=== PATIENT | female | born 1940 | race Caucasian/White ===

== ENCOUNTER 2016-10-30 08:52 | Day surgery (SDC) | payer MEDICARE, OTHER ==
[2016-10-30] MEDS ORDERED: PHENYLEPHRINE 2.5% OPHTH 2 ML DROPS ONE (08:59)
[2016-10-30] MEDS ORDERED: PHENYLEPHRINE 2.5% OPHTH 2 ML DROPS OPTH ONE (09:15)
[2016-10-30] MEDS ORDERED: CYCLOPENTOLATE 1% OPHTH DROPS 2 ML OPTH ONE (09:15)
[2016-10-30] MEDS ORDERED: KETOROLAC 0.45% OPHTH DROPS OPTH ONE (09:15)
[2016-10-30] MEDS ORDERED: PROPARACAINE 0.5% OPHTH DROPS 15 ML OPTH ONE (09:15)
[2016-10-30] MEDS ORDERED: LACTATED RINGERS 500 ML IV ONE (09:22)
[2016-10-30] MEDS ORDERED: BRIMONIDINE 0.2% OPHTH DROPS 5 ML OPTH ONE (09:38)
[2016-10-30] MEDS ORDERED: EPINEPHrine 1 MG/ML AMP IVP ONE (09:38)
[2016-10-30] MEDS ORDERED: levoFLOXacin 0.5% OPHTH DROPS 5 ML OPTH ONE (09:38)
[2016-10-30] MEDS ORDERED: BSS/LIDOCAINE/EPINEPHRINE 1 ML SYRINGE IO ONE (09:38)
[2016-10-30] MEDS ORDERED: CHONDR SULF/HYALURONATE SYRINGE IO ONE (09:38)
[2016-10-30] MEDS ORDERED: TRIAMCIN/MOXIFLOX/VANCO 1 ML VIAL IO ONE (09:38)
[2016-10-30] MEDS ORDERED: MIDAZOLAM 2 MG/2 ML VIAL IVP ONE (09:45)
[2016-10-30] MEDS ORDERED: LACTATED RINGERS 1,000 ML IV ONE (09:59)
== END 2016-10-30 08:53 | disposition home or self-care (01) ==
PROC: 08RJ3JZ Replacement of Right Lens with Synthetic Substitute, Percutaneous Approach (ICD-10-PCS; principal; 2016-10-30 10:10)
DX: H25.811 Combined forms of age-related cataract, right eye (principal); I10 Essential (primary) hypertension; E78.5 Hyperlipidemia, unspecified; J45.909 Unspecified asthma, uncomplicated; Z79.82 Long term (current) use of aspirin; Z90.49 Acquired absence of other specified parts of digestive tract; Z90.710 Acquired absence of both cervix and uterus
CPT/HCPCS: 66984; A9270; J7120; V2632

== ENCOUNTER 2016-12-08 08:00 | Outpatient (CLI) | payer MEDICARE, OTHER | END 2016-12-08 08:01 | DX: I10 Essential (primary) hypertension (principal); E11.9 Type 2 diabetes mellitus without complications; E78.5 Hyperlipidemia, unspecified ==

== ENCOUNTER 2016-12-23 15:37 | Outpatient (CLI) | payer MEDICARE, OTHER | END 2016-12-23 15:38 | disposition home or self-care (01) | DX: I10 Essential (primary) hypertension (principal) ==

== ENCOUNTER 2016-12-29 16:30 | Outpatient (CLI) | payer MEDICARE, OTHER | END 2016-12-29 16:31 | disposition home or self-care (01) | DX: R31.9 Hematuria, unspecified (principal) ==

== ENCOUNTER 2016-12-29 17:52 | Outpatient (CLI) | payer MEDICARE, OTHER ==
[2016-12-29] MEDS ORDERED: IOPAMIDOL-300 50 ML VIAL PO ONE (20:00)
[2016-12-29] MEDS ORDERED: IOPAMIDOL-300 100 ML VIAL IVP ONE (20:00)
== END 2016-12-29 17:53 | disposition home or self-care (01) ==
DX: R18.8 Other ascites (principal); K57.30 Diverticulosis of large intestine without perforation or abscess without bleeding; Z90.710 Acquired absence of both cervix and uterus; Z90.49 Acquired absence of other specified parts of digestive tract
CPT/HCPCS: 74177; Q9967

== ENCOUNTER 2016-12-29 22:01 | Inpatient (IN) | payer MEDICARE, OTHER ==
[2016-12-29] MEDS ORDERED: POTASSIUM CHLOR 10 MEQ/100 ML 100 ML IV ONE ×2 (23:04→23:07)
[2016-12-29] MEDS ORDERED: SODIUM CHLORIDE 0.9% 1,000 ML IV ONE (23:13)
[2016-12-30] MEDS ORDERED: SODIUM CHLORIDE FLUSH 0.9% 10 ML SYRINGE IVP PRN ×2 (01:04→15:30)
[2016-12-30] MEDS ORDERED: IPRATROPIUM/ALBUTEROL 3 ML NEB INH PRN (01:26)
[2016-12-30] MEDS ORDERED: METOPROLOL 5 MG/5 ML VIAL IVP PRN (01:26)
[2016-12-30] MEDS ORDERED: MORPHINE 2 MG/ML SYRINGE IVP PRN (02:29)
[2016-12-30] MEDS: cefOXitin 2 GM in SODIUM CHLORIDE 0.9% MINIBAG 100 ML IV SCH ×3 (02:34→22:38)
[2016-12-30] MEDS: LACTATED RINGERS 1,000 ML IV SCH ×3 (02:34→23:40)
[2016-12-30] MEDS: SODIUM CHLORIDE FLUSH 0.9% 10 ML SYRINGE IVP SCH ×4 (02:36→22:39)
[2016-12-30] MEDS ORDERED: ALBUTEROL NEB 2.5 MG/3 ML INH PRN (04:37)
[2016-12-30] MEDS ORDERED: POTASSIUM CHLORIDE 20 MEQ TABLET PO STA (04:37)
[2016-12-30] MEDS ORDERED: hydroCHLOROthiazide 25 MG TABLET PO SCH (05:00)
[2016-12-30] MEDS: ATORVASTATIN 40 MG TABLET PO SCH ×2 (05:11→22:15)
[2016-12-30] MEDS: BUDESONIDE 0.5 MG/2 ML NEB INH SCH ×2 (07:45→20:30)
[2016-12-30] MEDS: FORMOTEROL FUMARATE NEB 20 MCG/2 ML INH SCH ×2 (07:45→20:30)
[2016-12-30] MEDS ORDERED: LOSARTAN POTASSIUM 100 MG PO SCH (09:00)
[2016-12-30] MEDS ORDERED: LOSARTAN 50 MG TABLET PO SCH (09:00)
[2016-12-30] MEDS ORDERED: ASPIRIN EC 81 MG TABLET PO SCH (09:00)
[2016-12-30] MEDS ORDERED: NON FORMULARY MED (Multivitamin [Multi-Vitamin Daily] 1 EACH) PO SCH (09:00)
[2016-12-30] MEDS: MULTIVITAMIN TABLET PO SCH (09:14)
[2016-12-30] MEDS: FELODIPINE ER 2.5 MG TABLET PO SCH ×2 (09:14→22:15)
[2016-12-30] MEDS: MONTELUKAST 10 MG TABLET PO SCH (09:14)
[2016-12-30] MEDS ORDERED: LACTATED RINGERS 600 ML IV ONE (10:39)
[2016-12-30] MEDS ORDERED: LACTATED RINGERS 1,000 ML IV ONE ×5 (11:10→13:28)
[2016-12-30] MEDS ORDERED: LIDOCAINE MPF 1%-EPI 1:200000 30 ML VIAL SUBQ ONE (11:19)
[2016-12-30] MEDS ORDERED: ROCURONIUM 50 MG/5 ML VIAL IVP ONE (12:00)
[2016-12-30] MEDS ORDERED: ePHEDrine 50 MG/ML AMP IVP ONE (12:00)
[2016-12-30] MEDS ORDERED: NEOSTIGMINE 1 MG/1 ML 10 ML MDV IVP ONE (12:00)
[2016-12-30] MEDS ORDERED: BUPIVACAINE 0.25% PF 10 ML VIAL SUBQ ONE (12:00)
[2016-12-30] MEDS ORDERED: ceFAZolin 1 GM VIAL IV ONE (12:00)
[2016-12-30] MEDS ORDERED: GLYCOPYRROLATE 1 MG/5 ML VIAL IVP ONE (12:00)
[2016-12-30] MEDS ORDERED: MIDAZOLAM 2 MG/2 ML VIAL IVP ONE (12:00)
[2016-12-30] MEDS ORDERED: DEXAMETHASONE 4 MG/ML VIAL IVP ONE (12:00)
[2016-12-30] MEDS ORDERED: fentaNYL 100 MCG/2 ML VIAL IVP ONE (12:00)
[2016-12-30] MEDS ORDERED: ALBUTEROL 6.7 GM INHALER INH ONE (12:00)
[2016-12-30] MEDS ORDERED: PROPOFOL 200 MG/20 ML VIAL IVP ONE (12:00)
[2016-12-30] MEDS ORDERED: LIDOCAINE-MPF 2% 5 ML VIAL IM ONE (12:00)
[2016-12-30] MEDS ORDERED: NALBUPHINE 20 MG/ML AMP IVP PRN (12:46)
[2016-12-30] MEDS ORDERED: diphenhydrAMINE INJ 50 MG/ML VIAL IVP PRN (12:46)
[2016-12-30] MEDS ORDERED: ONDANSETRON 4 MG/2 ML VIAL IVP PRN (12:46)
[2016-12-30] MEDS ORDERED: fent/BUPIV 2 MCG/0.125% 250 ML EP PRN (12:46)
[2016-12-30] MEDS ORDERED: fent/BUPIV 2 MCG/0.125% 250 ML EP ONE (14:29)
[2016-12-30] MEDS: PIPERACILLIN/TAZOBACTAM 2.25 GM in SODIUM CHLORIDE 0.9% MINIBAG 100 ML IV SCH ×2 (16:52→22:02)
[2016-12-30] MEDS ORDERED: IPRATROPIUM 0.2 MG/ML NEB INH SCH (18:00)
[2016-12-31] MEDS ORDERED: LACTATED RINGERS 1,000 ML IV SCH (03:00)
[2016-12-31] MEDS ORDERED: SODIUM CHLORIDE 0.9% 500 ML IV ONE ×2 (03:06→08:28)
[2016-12-31] MEDS: SODIUM CHLORIDE 0.9% 500 ML IV SCH ×2 (03:56→04:25)
[2016-12-31] MEDS: PIPERACILLIN/TAZOBACTAM 2.25 GM in SODIUM CHLORIDE 0.9% MINIBAG 100 ML IV SCH (04:07)
[2016-12-31] MEDS: SODIUM CHLORIDE FLUSH 0.9% 10 ML SYRINGE IVP SCH ×6 (06:10→22:11)
[2016-12-31] MEDS: BUDESONIDE 0.5 MG/2 ML NEB INH SCH ×2 (06:16→19:40)
[2016-12-31] MEDS: FORMOTEROL FUMARATE NEB 20 MCG/2 ML INH SCH ×2 (06:16→19:40)
[2016-12-31] MEDS: ALBUTEROL NEB 2.5 MG/3 ML INH PRN (06:16)
[2016-12-31] MEDS ORDERED: MAGNESIUM SULFATE 2 GRAM 50 ML IV ONE (08:29)
[2016-12-31] MEDS: LACTATED RINGERS 1,000 ML IV SCH (08:48)
[2016-12-31] MEDS: MULTIVITAMIN TABLET PO SCH ×2 (09:12→14:26)
[2016-12-31] MEDS: FAMOTIDINE 20 MG/50 ML 50 ML IV SCH (09:14)
[2016-12-31] MEDS: MONTELUKAST 10 MG TABLET PO SCH ×2 (09:15→21:33)
[2016-12-31] MEDS: POTASSIUM CHLOR 10 MEQ/100 ML 100 ML IV SCH ×4 (10:00→13:22)
[2016-12-31] MEDS ORDERED: SODIUM CHLORIDE 0.9% 1,000 ML IV SCH (14:00)
[2016-12-31] MEDS ORDERED: FUROSEMIDE 100 MG/10 ML VIAL IVP SCH (19:28)
[2016-12-31] MEDS: D5.45NS W/20 MEQ KCL 1,000 ML IV SCH (20:05)
[2016-12-31] MEDS ORDERED: PIPERACILLIN/TAZOBACTAM 2.25 GM in SODIUM CHLORIDE 0.9% MINIBAG 100 ML IV SCH (21:00)
[2016-12-31] MEDS: CIPROFLOXACIN 400 MG/200 ML 200 ML IV SCH (21:33)
[2016-12-31] MEDS: HEPARIN 5,000 UNIT/ML VIAL SUBQ SCH (21:34)
[2016-12-31] MEDS: metroNIDAZOLE 500 MG/100 ML 100 ML IV SCH (22:07)
[2017-01-01] MEDS: ATORVASTATIN 40 MG TABLET PO SCH ×2 (05:10→20:10)
[2017-01-01] MEDS: metroNIDAZOLE 500 MG/100 ML 100 ML IV SCH ×3 (05:51→21:45)
[2017-01-01] MEDS: SODIUM CHLORIDE FLUSH 0.9% 10 ML SYRINGE IVP SCH ×6 (05:52→20:17)
[2017-01-01] MEDS: FORMOTEROL FUMARATE NEB 20 MCG/2 ML INH SCH ×2 (07:50→19:50)
[2017-01-01] MEDS: BUDESONIDE 0.5 MG/2 ML NEB INH SCH ×2 (07:50→19:50)
[2017-01-01] MEDS: MULTIVITAMIN TABLET PO SCH (08:17)
[2017-01-01] MEDS: CIPROFLOXACIN 400 MG/200 ML 200 ML IV SCH ×2 (08:17→20:18)
[2017-01-01] MEDS: FELODIPINE ER 2.5 MG TABLET PO SCH ×2 (08:18→20:10)
[2017-01-01] MEDS: LOSARTAN 50 MG TABLET PO SCH (08:18)
[2017-01-01] MEDS: FAMOTIDINE 20 MG/50 ML 50 ML IV SCH (08:18)
[2017-01-01] MEDS: POTASSIUM CHLORIDE 20 MEQ/15 ML UDC PO SCH (08:26)
[2017-01-01] MEDS: ACETAMINOPHEN 1,000 MG/100 ML 100 ML IV SCH ×2 (09:30→16:54)
[2017-01-01] MEDS: HEPARIN 5,000 UNIT/ML VIAL SUBQ SCH ×2 (09:56→20:10)
[2017-01-01] MEDS: D5.45NS W/20 MEQ KCL 1,000 ML IV SCH ×2 (11:37→20:10)
[2017-01-01] MEDS: MONTELUKAST 10 MG TABLET PO SCH (20:10)
[2017-01-02] MEDS: ACETAMINOPHEN 1,000 MG/100 ML 100 ML IV SCH ×3 (00:15→16:34)
[2017-01-02] MEDS ORDERED: ONDANSETRON 4 MG/2 ML VIAL ONE (00:17)
[2017-01-02] MEDS ORDERED: ONDANSETRON 4 MG/2 ML VIAL IVP PRN (00:20)
[2017-01-02] MEDS: D5.45NS W/20 MEQ KCL 1,000 ML IV SCH ×4 (02:00→22:20)
[2017-01-02] MEDS ORDERED: HYDROcod/ACETAM 5/325 MG TABLET PO PRN ×2 (02:39→08:43)
[2017-01-02] MEDS: metroNIDAZOLE 500 MG/100 ML 100 ML IV SCH ×3 (05:25→22:20)
[2017-01-02] MEDS: SODIUM CHLORIDE FLUSH 0.9% 10 ML SYRINGE IVP SCH ×6 (05:26→22:20)
[2017-01-02] MEDS: CIPROFLOXACIN 400 MG/200 ML 200 ML IV SCH ×2 (08:10→20:55)
[2017-01-02] MEDS: FELODIPINE ER 2.5 MG TABLET PO SCH ×2 (08:10→20:54)
[2017-01-02] MEDS: POTASSIUM CHLORIDE 20 MEQ/15 ML UDC PO SCH ×2 (08:10→09:14)
[2017-01-02] MEDS: FAMOTIDINE 20 MG/50 ML 50 ML IV SCH (08:10)
[2017-01-02] MEDS: LOSARTAN 50 MG TABLET PO SCH (08:11)
[2017-01-02] MEDS: MULTIVITAMIN TABLET PO SCH (08:11)
[2017-01-02] MEDS: FORMOTEROL FUMARATE NEB 20 MCG/2 ML INH SCH ×2 (08:15→22:20)
[2017-01-02] MEDS: BUDESONIDE 0.5 MG/2 ML NEB INH SCH ×2 (08:15→22:00)
[2017-01-02] MEDS ORDERED: KETOROLAC 10 MG TABLET PO PRN ×2 (08:37→10:50)
[2017-01-02] MEDS ORDERED: METOCLOPRAMIDE 10 MG/2 ML VIAL IVP ONE (09:00)
[2017-01-02] MEDS ORDERED: ASPIRIN EC 81 MG TABLET PO SCH (09:00)
[2017-01-02] MEDS: ENOXAPARIN 40 MG/0.4 ML SYRINGE SUBQ SCH (09:52)
[2017-01-02] MEDS: ATORVASTATIN 40 MG TABLET PO SCH (20:55)
[2017-01-02] MEDS: MONTELUKAST 10 MG TABLET PO SCH (20:55)
[2017-01-03] MEDS: ACETAMINOPHEN 1,000 MG/100 ML 100 ML IV SCH ×3 (01:07→17:37)
[2017-01-03] MEDS: ALBUTEROL NEB 2.5 MG/3 ML INH PRN ×2 (04:55→19:59)
[2017-01-03] MEDS: D5.45NS W/20 MEQ KCL 1,000 ML IV SCH ×3 (04:57→19:57)
[2017-01-03] MEDS: SODIUM CHLORIDE FLUSH 0.9% 10 ML SYRINGE IVP SCH ×6 (05:02→20:50)
[2017-01-03] MEDS: metroNIDAZOLE 500 MG/100 ML 100 ML IV SCH ×3 (05:26→21:31)
[2017-01-03] MEDS: ENOXAPARIN 40 MG/0.4 ML SYRINGE SUBQ SCH (09:13)
[2017-01-03] MEDS: FAMOTIDINE 20 MG/50 ML 50 ML IV SCH (10:09)
[2017-01-03] MEDS: FELODIPINE ER 2.5 MG TABLET PO SCH ×2 (10:20→20:49)
[2017-01-03] MEDS: MULTIVITAMIN TABLET PO SCH (10:20)
[2017-01-03] MEDS: LOSARTAN 50 MG TABLET PO SCH (10:20)
[2017-01-03] MEDS: FORMOTEROL FUMARATE NEB 20 MCG/2 ML INH SCH ×2 (10:26→19:59)
[2017-01-03] MEDS: BUDESONIDE 0.5 MG/2 ML NEB INH SCH ×2 (10:26→19:59)
[2017-01-03] MEDS: CIPROFLOXACIN 400 MG/200 ML 200 ML IV SCH ×2 (10:58→20:34)
[2017-01-03] MEDS: ATORVASTATIN 40 MG TABLET PO SCH (20:33)
[2017-01-03] MEDS: MONTELUKAST 10 MG TABLET PO SCH (20:49)
[2017-01-04] MEDS: ACETAMINOPHEN 1,000 MG/100 ML 100 ML IV SCH ×3 (00:58→16:47)
[2017-01-04] MEDS: SODIUM CHLORIDE FLUSH 0.9% 10 ML SYRINGE IVP SCH ×6 (05:46→20:31)
[2017-01-04] MEDS: metroNIDAZOLE 500 MG/100 ML 100 ML IV SCH (05:54)
[2017-01-04] MEDS: ENOXAPARIN 40 MG/0.4 ML SYRINGE SUBQ SCH (08:16)
[2017-01-04] MEDS: BUDESONIDE 0.5 MG/2 ML NEB INH SCH ×2 (08:48→18:58)
[2017-01-04] MEDS: FORMOTEROL FUMARATE NEB 20 MCG/2 ML INH SCH ×2 (08:48→18:58)
[2017-01-04] MEDS: FAMOTIDINE 20 MG/50 ML 50 ML IV SCH (09:03)
[2017-01-04] MEDS: FELODIPINE ER 2.5 MG TABLET PO SCH ×2 (10:52→20:28)
[2017-01-04] MEDS: MULTIVITAMIN TABLET PO SCH (10:52)
[2017-01-04] MEDS: LOSARTAN 50 MG TABLET PO SCH (10:53)
[2017-01-04] MEDS: CIPROFLOXACIN 400 MG/200 ML 200 ML IV SCH (10:53)
[2017-01-04] MEDS: D5.45NS W/20 MEQ KCL 1,000 ML IV SCH (12:33)
[2017-01-04] MEDS: ATORVASTATIN 40 MG TABLET PO SCH (20:29)
[2017-01-04] MEDS: MONTELUKAST 10 MG TABLET PO SCH (20:29)
[2017-01-05] MEDS: ACETAMINOPHEN 1,000 MG/100 ML 100 ML IV SCH (01:02)
[2017-01-05] MEDS: D5.45NS W/20 MEQ KCL 1,000 ML IV SCH (01:09)
[2017-01-05] MEDS: SODIUM CHLORIDE FLUSH 0.9% 10 ML SYRINGE IVP SCH ×6 (06:00→21:11)
[2017-01-05] MEDS: ENOXAPARIN 40 MG/0.4 ML SYRINGE SUBQ SCH (08:28)
[2017-01-05] MEDS: FELODIPINE ER 2.5 MG TABLET PO SCH ×2 (08:29→21:11)
[2017-01-05] MEDS: FAMOTIDINE 20 MG/50 ML 50 ML IV SCH (08:29)
[2017-01-05] MEDS: LOSARTAN 50 MG TABLET PO SCH (08:29)
[2017-01-05] MEDS: MULTIVITAMIN TABLET PO SCH (08:29)
[2017-01-05] MEDS: BUDESONIDE 0.5 MG/2 ML NEB INH SCH ×2 (09:35→19:40)
[2017-01-05] MEDS: FORMOTEROL FUMARATE NEB 20 MCG/2 ML INH SCH ×2 (09:35→19:40)
[2017-01-05] MEDS ORDERED: HYDROcod/ACETAM 5/325 MG TABLET PO PRN (09:45)
[2017-01-05] MEDS: ATORVASTATIN 40 MG TABLET PO SCH (21:11)
[2017-01-05] MEDS: MONTELUKAST 10 MG TABLET PO SCH (21:11)
[2017-01-06] MEDS: SODIUM CHLORIDE FLUSH 0.9% 10 ML SYRINGE IVP SCH ×2 (05:45)
[2017-01-06] MEDS ORDERED: MORPHINE 2 MG/ML SYRINGE IVP ONE (06:57)
[2017-01-06] MEDS: MULTIVITAMIN TABLET PO SCH (08:24)
[2017-01-06] MEDS: FELODIPINE ER 2.5 MG TABLET PO SCH (08:25)
[2017-01-06] MEDS: ENOXAPARIN 40 MG/0.4 ML SYRINGE SUBQ SCH (08:25)
[2017-01-06] MEDS: FAMOTIDINE 20 MG/50 ML 50 ML IV SCH (08:25)
[2017-01-06] MEDS: LOSARTAN 50 MG TABLET PO SCH (08:26)
== END 2017-01-06 12:15 | disposition home or self-care (01) | DRG 329 ==
PROC: 0DNW0ZZ Release Peritoneum, Open Approach (ICD-10-PCS; 2016-12-30)
PROC: 0DNF0ZZ Release Right Large Intestine, Open Approach (ICD-10-PCS; 2016-12-30)
PROC: 0DTF0ZZ Resection of Right Large Intestine, Open Approach (ICD-10-PCS; principal; 2016-12-30 10:15)
DX: K38.8 Other specified diseases of appendix (principal); E86.0 Dehydration; J98.4 Other disorders of lung; C18.1 Malignant neoplasm of appendix; K35.3 Acute appendicitis with localized peritonitis; N17.0 Acute kidney failure with tubular necrosis; C78.6 Secondary malignant neoplasm of retroperitoneum and peritoneum; K66.0 Peritoneal adhesions (postprocedural) (postinfection); B96.6 Bacteroides fragilis [B. fragilis] as the cause of diseases classified elsewhere; E87.6 Hypokalemia; R73.9 Hyperglycemia, unspecified; I10 Essential (primary) hypertension; J45.909 Unspecified asthma, uncomplicated; E78.5 Hyperlipidemia, unspecified; E66.9 Obesity, unspecified; Z90.49 Acquired absence of other specified parts of digestive tract; Z90.710 Acquired absence of both cervix and uterus; Z79.82 Long term (current) use of aspirin; Z68.30 Body mass index [BMI] 30.0-30.9, adult; R31.9 Hematuria, unspecified; R18.8 Other ascites; K57.30 Diverticulosis of large intestine without perforation or abscess without bleeding

== ENCOUNTER 2017-04-02 09:36 | Outpatient (CLI) | payer MEDICARE, OTHER ==
--- NOTE | 2017-04-03 15:55 | Mammography Report ---
DIGITAL SCREENING MAMMOGRAM: 04/02/2017 CLINICAL INDICATION: A 76-year-old, for screening. COMPARISON: 05/2014, 11/2012, 07/2010, 07/2010, 07/2009, 07/2008. TECHNIQUE: Routine CC and MLO projections were obtained of the breasts. FINDINGS: The breasts again demonstrate scattered fibroglandular densities bilaterally. There is inc reasing nodularity in the left upper outer quadrant. Further evaluation with spot compression views a nd possible ultrasound is recommended. No mammographically suspicious findings are appreciated in the right breast. IMPRESSION: INCOMPLETE EXAMINATION. RECOMMENDATION: ADDITIONAL EVALUATION OF THE LEFT BREAST ABOVE. BIRADS CATEGORY 0-INCOMPLETE. STANDARD QUALIFYING STATEMENTS 1. This examination was reviewed with the aid of Computer-Aided Detection (CAD). 2. A negative or benign imaging report should not delay biopsy if clinically suspicious findings are present. Consider surgical consultation if warranted. More than 5% of cancers are not identified by i maging. 3. Dense breasts may obscure an underlying neoplasm. JOB #: [id number] EXT JOB #:[id number]
== END 2017-04-02 09:37 | disposition home or self-care (01) ==
LOC: DI.N 09:36
PROVIDERS: ATTEND Family Medicine
DX: Z12.31 Encounter for screening mammogram for malignant neoplasm of breast (principal); R92.2 Inconclusive mammogram
CPT/HCPCS: 77067

== ENCOUNTER 2017-05-05 08:17 | Outpatient (CLI) | payer MEDICARE, OTHER ==
--- NOTE | 2017-05-05 09:54 | Ultrasound Report ---
LEFT BREAST ULTRASOUND: 05/05/2017 CLINICAL INDICATION: Persistent nodule on mammogram. TECHNIQUE: Real-time scanning was performed with medical service representative static images obtained. FINDINGS: Ultrasound of the left upper outer quadrant was performed. At the 2 o'clock position, jessenia roximately 5 cm from the nipple, there is a 1.1 x 0.8 x 0.5 cm cyst. No sonographically suspicious f indings are identified. IMPRESSION: CYST, ACCOUNTING FOR THE MAMMOGRAPHIC ABNORMALITY. RECOMMENDATION: Routine annual screening unless otherwise clinically indicated. BIRADS CATEGORY 2 - BENIGN FINDINGS. JOB #: [id number] EXT JOB #:[id number]
--- NOTE | 2017-05-05 17:01 | Mammography Report ---
DIGITAL DIAGNOSTIC LEFT MAMMOGRAM: 05/05/2017 CLINICAL INDICATION: Possible nodule on screening. TECHNIQUE: Left true lateral and spot compression views. COMPARISON: 04/02/2017, 06/21/2014, 11/29/2012, 07/31/2010, 07/03/2010. The left breast again demonstrates scattered fibroglandular densities. The nodule in question, in th e left upper-outer central breast, persists on spot compression views, measuring 12 mm. No associate d calcifications are seen. Please also refer to left breast ultrasound of the same day. IMPRESSION: BENIGN FINDINGS, WITH A CYST ON ULTRASOUND ACCOUNTING FOR THE MAMMOGRAPHIC ABNORMALITY. RECOMMENDATION: ROUTINE ANNUAL SCREENING UNLESS OTHERWISE CLINICALLY INDICATED. BIRADS CATEGORY: 2, BENIGN FINDINGS. STANDARD QUALIFYING STATEMENTS 1. This examination was reviewed with the aid of Computed-Aided Detection (CAD). 2. A negative or benign imaging report should not delay biopsy if clinically suspicious findings are present. Consider surgical consultation if warranted. More than 5% of cancers are not identified b y imaging. 3. Dense breasts may obscure an underlying neoplasm. JOB #: [id number] EXT JOB #:[id number]
== END 2017-05-05 08:18 | disposition home or self-care (01) ==
LOC: DI 08:17
PROVIDERS: ATTEND Family Medicine
DX: R92.8 Other abnormal and inconclusive findings on diagnostic imaging of breast (principal)
CPT/HCPCS: 76642; G0206

== ENCOUNTER 2017-07-27 13:40 | Outpatient (CLI) | payer MEDICARE, OTHER ==
[2017-07-27 19:43] LABS: BUN - BLOOD UREA NITROGEN 29 mg/dL (6-20); CARBON DIOXIDE - CO2 28 mmol/L (21-32); CHLORIDE 103 mmol/L (101-111); CHOL/HDL RATIO 3.4 (<4.4); CHOLESTEROL 180 mg/dL; CREATININE 1.1 mg/dL (0.4-1.0); GFR - MDRD 49 (>89); GLUCOSE 107 mg/dL (70-100); HDL CHOLESTEROL 53 mg/dL; LDL/HDL RATIO 1.5 (<4.4); POTASSIUM 3.1 mmol/L (3.5-5.0); SODIUM 139 mmol/L (135-145); TRIGLYCERIDES 245 mg/dL; VLDL CHOLESTEROL 49 mg/dL
[2017-07-27 19:51] LABS: HEMOGLOBIN A1C 0.71 g/dL
== END 2017-07-27 13:41 | disposition home or self-care (01) ==
LOC: LAB.WCP 13:40
PROVIDERS: ATTEND Family Medicine
DX: I10 Essential (primary) hypertension (principal); E11.9 Type 2 diabetes mellitus without complications; E78.5 Hyperlipidemia, unspecified
CPT/HCPCS: 36415; 80048; 80061; 82043; 83036

== ENCOUNTER 2017-12-09 07:54 | Outpatient (CLI) | payer MEDICARE, OTHER ==
[2017-12-09 13:19] LABS: ALBUMIN 4.2 g/dL (3.2-5.5); ALBUMIN/GLOBULIN RATIO 1.1 (1.0-2.2); BILIRUBIN,TOTAL 0.9 mg/dL (0.2-1.0); CALCIUM 9.2 mg/dL (8.5-10.3); CREATININE 1.2 mg/dL (0.4-1.0); TOTAL PROTEIN 7.9 g/dL (6.7-8.2)
[2017-12-09 13:45] LABS: HB2 TOTAL 14.6 g/dL; HEMOGLOBIN A1C 0.75 g/dL; HEMOGLOBIN A1C % 6.9 % (4.6-6.2)
== END 2017-12-09 07:55 | disposition home or self-care (01) ==
LOC: LAB.WCP 07:54
PROVIDERS: ATTEND Family Medicine
DX: M17.9 Osteoarthritis of knee, unspecified (principal); E11.9 Type 2 diabetes mellitus without complications
CPT/HCPCS: 36415; 80053; 83036

== ENCOUNTER 2018-01-14 09:55 | Outpatient (CLI) | payer MEDICARE, OTHER ==
[2018-01-14 13:10] LABS: CALCIUM 9.2 mg/dL (8.5-10.3); CREATININE 1.2 mg/dL (0.4-1.0)
== END 2018-01-14 09:56 ==
LOC: LAB.WCP 09:55
PROVIDERS: ATTEND Family Medicine
DX: E87.6 Hypokalemia (principal)
CPT/HCPCS: 36415; 80048

== ENCOUNTER 2018-03-17 08:00 | Outpatient (CLI) | payer MEDICARE, OTHER ==
[2018-03-17 12:38] LABS: BASOPHILS # (AUTO) 0.1 10^3/uL (0.0-0.1); BASOPHILS % (AUTO) 1.6 %; EOSINOPHILS # (AUTO) 0.2 10^3/uL (0.0-0.7); EOSINOPHILS % (AUTO) 3.2 %; HGB - HEMOGLOBIN 13.1 g/dL (12.0-16.0); LYMPHOCYTES # (AUTO) 2.2 10^3/uL (1.5-3.5); LYMPHOCYTES % (AUTO) 33.5 %; MEAN CORPUSCULAR HGB CONC 34.7 g/dL (32.0-36.0); MEAN CORPUSCULAR VOLUME 86.6 fL (81.0-99.0); MEAN PLATELET VOLUME 7.7 fL (7.9-10.8); MONOCYTES # (AUTO) 0.5 10^3/uL (0.0-1.0); MONOCYTES % (AUTO) 7.8 %; NEUTROPHILS # (AUTO) 3.6 10^3/uL (1.5-6.6); NEUTROPHILS % (AUTO) 53.9 %; PLT - PLATELET COUNT 233 10^3/uL (130-450); RED BLOOD COUNT 4.36 10^6/uL (4.20-5.40); RED CELL DISTRIBUTION WIDTH 12.9 % (12.0-15.0); WHITE BLOOD COUNT 6.7 x10^3/uL (4.8-10.8)
[2018-03-17 12:51] LABS: HB2 TOTAL 13.6 g/dL; HEMOGLOBIN A1C 0.73 g/dL; HEMOGLOBIN A1C % 7.1 % (4.6-6.2)
[2018-03-17 12:57] LABS: ALBUMIN 3.6 g/dL (3.2-5.5); ALBUMIN/GLOBULIN RATIO 0.9 (1.0-2.2); ALKALINE PHOSPHATASE 64 IU/L (42-121); ALT ALANINE AMINOTRANSFERASE 27 IU/L (10-60); AST ASPARTATE AMINOTRANSFERASE 29 IU/L (10-42); BILIRUBIN,TOTAL 0.9 mg/dL (0.2-1.0); BUN - BLOOD UREA NITROGEN 21 mg/dL (6-20); CALCIUM 9.2 mg/dL (8.5-10.3); CARBON DIOXIDE - CO2 27 mmol/L (21-32); CHLORIDE 103 mmol/L (101-111); CHOL/HDL RATIO 2.8 (<4.4); CHOLESTEROL 158 mg/dL; CREATININE 1.2 mg/dL (0.4-1.0); GFR - MDRD 44 (>89); GLUCOSE 141 mg/dL (70-100); HDL CHOLESTEROL 56 mg/dL; LDL CHOLESTEROL,CALCULATED 74 mg/dL; LDL/HDL RATIO 1.3 (<4.4); SODIUM 139 mmol/L (135-145); TOTAL PROTEIN 7.6 g/dL (6.7-8.2); VLDL CHOLESTEROL 28 mg/dL
[2018-03-17 12:59] LABS: RBC MORPHOLOGY (MULTIPLE) 2+ ANISOCYTOSIS (NORMAL)
== END 2018-03-17 08:01 | disposition home or self-care (01) ==
LOC: LAB.WCP 08:00
PROVIDERS: ATTEND Family Medicine
DX: I10 Essential (primary) hypertension (principal); E78.5 Hyperlipidemia, unspecified; E11.9 Type 2 diabetes mellitus without complications
CPT/HCPCS: 36415; 80053; 80061; 83036; 83721; 85025

== ENCOUNTER 2018-06-15 14:59 | Outpatient (CLI) | payer MEDICARE, OTHER ==
[2018-06-15 15:12] LABS: BASOPHILS # (AUTO) 0.1 10^3/uL (0.0-0.1); BASOPHILS % (AUTO) 1.2 %; EOSINOPHILS # (AUTO) 0.1 10^3/uL (0.0-0.7); EOSINOPHILS % (AUTO) 0.8 %; HGB - HEMOGLOBIN 13.9 g/dL (12.0-16.0); LYMPHOCYTES # (AUTO) 2.3 10^3/uL (1.5-3.5); LYMPHOCYTES % (AUTO) 26.6 %; MEAN CORPUSCULAR HEMOGLOBIN 29.9 pg (27.0-31.0); MEAN CORPUSCULAR HGB CONC 34.5 g/dL (32.0-36.0); MEAN CORPUSCULAR VOLUME 86.6 fL (81.0-99.0); MONOCYTES # (AUTO) 0.6 10^3/uL (0.0-1.0); MONOCYTES % (AUTO) 6.9 %; NEUTROPHILS # (AUTO) 5.5 10^3/uL (1.5-6.6); NEUTROPHILS % (AUTO) 64.5 %; PLT - PLATELET COUNT 255 10^3/uL (130-450); RED BLOOD COUNT 4.65 10^6/uL (4.20-5.40); RED CELL DISTRIBUTION WIDTH 12.8 % (12.0-15.0); WHITE BLOOD COUNT 8.5 x10^3/uL (4.8-10.8)
[2018-06-15 15:24] LABS: ALBUMIN 4.1 g/dL (3.2-5.5); BILIRUBIN,TOTAL 0.8 mg/dL (0.2-1.0); CALCIUM 9.5 mg/dL (8.5-10.3); CREATININE 2.1 mg/dL (0.4-1.0); TOTAL PROTEIN 8.2 g/dL (6.7-8.2)
== END 2018-06-15 15:00 | disposition home or self-care (01) ==
LOC: LAB 14:59
PROVIDERS: ATTEND Internal Medicine Gastroenterology
DX: Z86.010 Personal history of colon polyps (principal)
CPT/HCPCS: 36415; 80053; 85025

== ENCOUNTER 2018-07-02 07:36 | Outpatient (CLI) | payer MEDICARE, OTHER ==
[2018-07-02 13:23] LABS: CALCIUM 9.5 mg/dL (8.5-10.3); CREATININE 1.4 mg/dL (0.4-1.0)
== END 2018-07-02 07:37 | disposition home or self-care (01) ==
LOC: LAB.WCP 07:36
PROVIDERS: ATTEND Family Medicine
DX: E87.6 Hypokalemia (principal)
CPT/HCPCS: 36415; 80048

== ENCOUNTER → 2018-07-13 | Outpatient (CLI) | payer MEDICARE, OTHER ==
[2018-07-13 14:56] LABS: CALCIUM 9.6 mg/dL (8.5-10.3); CREATININE 1.3 mg/dL (0.4-1.0)
== END ==
LOC: LAB.WCP 09:01
PROVIDERS: ATTEND Family Medicine
DX: E87.6 Hypokalemia (principal)
CPT/HCPCS: 36415; 80048

== ENCOUNTER 2018-07-15 05:50 | Day surgery (SDC) | payer MEDICARE, OTHER ==
[2018-07-15] MEDS ORDERED: LACTATED RINGERS 1,000 ML IV ONE (07:06)
[2018-07-15] MEDS ORDERED: MIDAZOLAM 2 MG/2 ML VIAL IVP ONE (07:49)
[2018-07-15] MEDS ORDERED: fentaNYL 100 MCG/2 ML VIAL IVP ONE (07:49)
[2018-07-15 08:22] VITALS: BP 110/68
--- NOTE | 2018-07-15 11:16 | PROCEDURE REPORT ---
DATE OF SERVICE: 07/15/2018 SURGEON: Som Tao MD PREOPERATIVE DIAGNOSIS: Screening colonoscopy one year out from right hemicolectomy. POSTOPERATIVE DIAGNOSIS: Subcentimeter polyp, sigmoid colon. PROCEDURE PERFORMED: Colonoscopy to anastomosis. 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 She presents now for screening followup. PROCEDURE IN DETAIL: The risks and benefits of the procedure were explained to the patient. She agreed to the procedure. She was taken to the operating room and given sedation. A timeout was performed and everyone in the room agreed with the procedure. We began by introducing a well-lubricated colonoscope into the rectum. This was advanced all the way to the anastomosis. The small bowel was inspected for a short distance. The anastomosis was found to be widely patent. The scope was then slowly withdrawn examining all the mucosal surfaces. The prep was marginal, but adequate. Numerous diverticula were seen in the sigmoid colon. There was also a small polyp seen in the sigmoid colon, which was removed with cold biopsy forceps. There was no residual bleeding. The scope was then completely withdrawn through the rectum, retroflexed at the anal verge and removed. No further abnormalities were seen. This terminated the procedure. The patient tolerated the procedure well. She was taken to recovery in stable condition. COMPLICATIONS: None. SPECIMEN: Sigmoid polyp biopsy. PLAN: To call her with the pathology results. TD: 07/15/2018 08:21 FLORENCIO
== END 2018-07-15 05:51 | disposition home or self-care (01) ==
LOC: SDS 05:50
PROVIDERS: ATTEND Surgery
PROC: 0DBN8ZZ Excision of Sigmoid Colon, Via Natural or Artificial Opening Endoscopic (ICD-10-PCS; principal; 2018-07-15 07:30)
DX: Z12.11 Encounter for screening for malignant neoplasm of colon (principal); D12.5 Benign neoplasm of sigmoid colon; K57.30 Diverticulosis of large intestine without perforation or abscess without bleeding; I10 Essential (primary) hypertension; E66.9 Obesity, unspecified; E11.9 Type 2 diabetes mellitus without complications; Z86.010 Personal history of colon polyps; Z87.891 Personal history of nicotine dependence; Z68.34 Body mass index [BMI] 34.0-34.9, adult; Z87.19 Personal history of other diseases of the digestive system; Z90.49 Acquired absence of other specified parts of digestive tract
CPT/HCPCS: 45380; J7120

== ENCOUNTER 2018-11-17 08:00 | Outpatient (CLI) | payer MEDICARE, OTHER ==
[2018-11-17 13:30] LABS: BASOPHILS # (AUTO) 0.1 10^3/uL (0.0-0.1); BASOPHILS % (AUTO) 1.2 %; EOSINOPHILS # (AUTO) 0.3 10^3/uL (0.0-0.7); EOSINOPHILS % (AUTO) 4.1 %; HGB - HEMOGLOBIN 13.3 g/dL (12.0-16.0); LYMPHOCYTES # (AUTO) 2.4 10^3/uL (1.5-3.5); MEAN CORPUSCULAR HEMOGLOBIN 29.4 pg (27.0-31.0); MEAN CORPUSCULAR HGB CONC 33.8 g/dL (32.0-36.0); MEAN CORPUSCULAR VOLUME 86.9 fL (81.0-99.0); MEAN PLATELET VOLUME 7.9 fL (7.9-10.8); MONOCYTES # (AUTO) 0.4 10^3/uL (0.0-1.0); MONOCYTES % (AUTO) 6.4 %; NEUTROPHILS # (AUTO) 3.7 10^3/uL (1.5-6.6); NEUTROPHILS % (AUTO) 53.3 %; PLT - PLATELET COUNT 255 10^3/uL (130-450); RED BLOOD COUNT 4.54 10^6/uL (4.20-5.40); RED CELL DISTRIBUTION WIDTH 12.7 % (12.0-15.0); WHITE BLOOD COUNT 6.9 x10^3/uL (4.8-10.8)
[2018-11-17 13:38] LABS: HB2 TOTAL 14.3 g/dL; HEMOGLOBIN A1C 0.85 g/dL; HEMOGLOBIN A1C % 7.6 % (4.6-6.2)
[2018-11-17 13:40] LABS: ALBUMIN 3.9 g/dL (3.2-5.5); ALBUMIN/GLOBULIN RATIO 1.1 (1.0-2.2); ALKALINE PHOSPHATASE 67 IU/L (42-121); ALT ALANINE AMINOTRANSFERASE 31 IU/L (10-60); AST ASPARTATE AMINOTRANSFERASE 34 IU/L (10-42); BILIRUBIN,TOTAL 0.8 mg/dL (0.2-1.0); BUN - BLOOD UREA NITROGEN 24 mg/dL (6-20); CALCIUM 9.4 mg/dL (8.5-10.3); CARBON DIOXIDE - CO2 28 mmol/L (21-32); CHLORIDE 102 mmol/L (101-111); CHOL/HDL RATIO 2.8 (<4.4); CHOLESTEROL 164 mg/dL; CREATININE 0.9 mg/dL (0.4-1.0); GFR - MDRD 61 (>89); GLUCOSE 167 mg/dL (70-100); HDL CHOLESTEROL 59 mg/dL; LDL CHOLESTEROL,CALCULATED 69 mg/dL; LDL/HDL RATIO 1.2 (<4.4); SODIUM 139 mmol/L (135-145); TOTAL PROTEIN 7.6 g/dL (6.7-8.2); VLDL CHOLESTEROL 36 mg/dL
== END 2018-11-17 23:59 | disposition home or self-care (01) ==
LOC: LAB.WCP 08:00
PROVIDERS: ATTEND Family Medicine
DX: E11.9 Type 2 diabetes mellitus without complications (principal); E78.5 Hyperlipidemia, unspecified; I10 Essential (primary) hypertension
CPT/HCPCS: 36415; 80053; 80061; 83036; 83721; 85025

== ENCOUNTER 2019-04-05 08:40 | Outpatient (CLI) | payer MEDICARE, OTHER ==
[2019-04-05 12:33] LABS: BASOPHILS # (AUTO) 0.1 10^3/uL (0.0-0.1); BASOPHILS % (AUTO) 1.2 %; EOSINOPHILS # (AUTO) 0.3 10^3/uL (0.0-0.7); EOSINOPHILS % (AUTO) 4.4 %; HGB - HEMOGLOBIN 13.2 g/dL (12.0-16.0); LYMPHOCYTES # (AUTO) 2.5 10^3/uL (1.5-3.5); LYMPHOCYTES % (AUTO) 36.7 %; MEAN CORPUSCULAR HEMOGLOBIN 29.5 pg (27.0-31.0); MEAN CORPUSCULAR HGB CONC 32.3 g/dL (32.0-36.0); MEAN CORPUSCULAR VOLUME 91.3 fL (81.0-99.0); MEAN PLATELET VOLUME 9.6 fL (7.9-10.8); MONOCYTES # (AUTO) 0.5 10^3/uL (0.0-1.0); MONOCYTES % (AUTO) 6.5 %; NEUTROPHILS # (AUTO) 3.5 10^3/uL (1.5-6.6); NEUTROPHILS % (AUTO) 50.8 %; PLT - PLATELET COUNT 270 10^3/uL (130-450); RED BLOOD COUNT 4.48 10^6/uL (4.20-5.40); RED CELL DISTRIBUTION WIDTH 11.9 % (12.0-15.0); WHITE BLOOD COUNT 6.9 x10^3/uL (4.8-10.8)
[2019-04-05 13:20] LABS: HB2 TOTAL 13.8 g/dL; HEMOGLOBIN A1C 0.77 g/dL; HEMOGLOBIN A1C % 7.3 % (4.6-6.2)
[2019-04-05 13:27] LABS: ALBUMIN/GLOBULIN RATIO 1.1 (1.0-2.2); ALKALINE PHOSPHATASE 62 IU/L (42-121); ALT ALANINE AMINOTRANSFERASE 24 IU/L (10-60); AST ASPARTATE AMINOTRANSFERASE 27 IU/L (10-42); BILIRUBIN,TOTAL 0.4 mg/dL (0.2-1.0); BUN - BLOOD UREA NITROGEN 30 mg/dL (6-20); CALCIUM 9.5 mg/dL (8.5-10.3); CARBON DIOXIDE - CO2 25 mmol/L (21-32); CHLORIDE 106 mmol/L (101-111); CHOLESTEROL 158 mg/dL; CREATININE 1.3 mg/dL (0.4-1.0); GFR - MDRD 40 (>89); GLUCOSE 144 mg/dL (70-100); HDL CHOLESTEROL 53 mg/dL; LDL CHOLESTEROL,CALCULATED 85 mg/dL; LDL/HDL RATIO 1.6 (<4.4); SODIUM 142 mmol/L (135-145); TOTAL PROTEIN 7.8 g/dL (6.7-8.2); VLDL CHOLESTEROL 20 mg/dL
[2019-04-05 13:34] LABS: CREATININE,URINE 90.4 mg/dL; MICROALBUM/CREATININE RATIO,UR 6.6 ug/mg (<30.0); MICROALBUMIN,URINE 0.6 mg/dL (0-300.0)
== END 2019-04-05 23:59 | disposition home or self-care (01) ==
LOC: LAB.WCP 08:40
PROVIDERS: ATTEND Family Medicine
DX: E87.6 Hypokalemia (principal); E11.9 Type 2 diabetes mellitus without complications; E78.5 Hyperlipidemia, unspecified; I10 Essential (primary) hypertension
CPT/HCPCS: 36415; 80053; 80061; 82043; 82570; 83036; 83721; 85025

== ENCOUNTER 2019-08-17 07:02 | Outpatient (CLI) | payer MEDICARE, OTHER ==
[2019-08-17 12:55] LABS: BILIRUBIN,TOTAL 0.9 mg/dL (0.2-1.0); CALCIUM 9.3 mg/dL (8.5-10.3); CREATININE 1.4 mg/dL (0.4-1.0); TOTAL PROTEIN 8.2 g/dL (6.7-8.2)
[2019-08-17 13:06] LABS: HB2 TOTAL 13.2 g/dL; HEMOGLOBIN A1C 0.71 g/dL; HEMOGLOBIN A1C % 7.1 % (4.6-6.2)
== END 2019-08-17 23:59 | disposition home or self-care (01) ==
LOC: LAB.WCP 07:02
PROVIDERS: ATTEND Physician Assistant Medical
DX: E11.9 Type 2 diabetes mellitus without complications (principal)
CPT/HCPCS: 36415; 80053; 83036

== ENCOUNTER 2019-09-19 07:00 | Outpatient (CLI) | payer MEDICARE, OTHER ==
[2019-09-19 12:28] LABS: CALCIUM 9.1 mg/dL (8.5-10.3); CREATININE 1.1 mg/dL (0.4-1.0)
== END 2019-09-19 23:59 | disposition home or self-care (01) ==
LOC: LAB.WCP 07:00
PROVIDERS: ATTEND Physician Assistant Medical
DX: N18.9 Chronic kidney disease, unspecified (principal)
CPT/HCPCS: 36415; 80048

== ENCOUNTER 2020-09-03 12:56 | Outpatient (CLI) | payer MEDICARE, OTHER ==
--- NOTE | 2020-09-03 16:50 | XRAY Report ---
PROCEDURE: Chest 2 View X-Ray INDICATIONS: Chest pain. TECHNIQUE: 2 view(s) of the chest. COMPARISON: CT chest 06/29/2018.. FINDINGS: Surgical changes and devices: None. Lungs and pleura: No pleural effusions or pneumothorax. Lungs are clear. Mediastinum: Mediastinal contours are normal. Heart size is normal. Bones and chest wall: No suspicious bony abnormalities. Soft tissues appear unremarkable. IMPRESSION: No acute cardiopulmonary abnormality. Reviewed by: Tray Ahmadi MD on 09/03/2020 3:49 PM [facility] Approved by: Tray Ahmadi MD on 09/03/2020 3:49 PM [facility] Station ID: [id number]
--- NOTE | 2020-09-03 16:52 | XRAY Report ---
PROCEDURE: Abdomen 1 View X-Ray INDICATIONS: CONSTIPATION TECHNIQUE: 1 view of the abdomen were acquired. COMPARISON: CT abdomen and pelvis with contrast 06/29/2018. FINDINGS: Surgical changes and devices: Suture material in the right lower quadrant.. Bowel: No pneumoperitoneum. Scattered small bowel and colonic gas. No dilated loops of bowel seen. Soft tissues: No masses; visualized solid organ contours appear normal in size. No suspicious abdom inal calcifications. Bones: No suspicious bony abnormalities. IMPRESSION: Nonobstructive bowel gas pattern. Small amount of fecal residue seen in the right colon. Reviewed by: Tray Ahmadi MD on 09/03/2020 3:50 PM [facility] Approved by: Tray Ahmadi MD on 09/03/2020 3:50 PM [facility] Station ID: [id number]
== END 2020-09-03 23:59 | disposition home or self-care (01) ==
LOC: DI.N 12:56
PROVIDERS: ATTEND Physician Assistant Medical
DX: R07.89 Other chest pain (principal); K59.00 Constipation, unspecified

== ENCOUNTER 2020-10-17 08:00 | Outpatient (CLI) | payer MEDICARE, OTHER ==
[2020-10-17 13:12] LABS: CALCIUM 9.3 mg/dL (8.5-10.3)
== END 2020-10-17 23:59 | disposition home or self-care (01) ==
LOC: LAB.WCP 08:00
PROVIDERS: ATTEND Physician Assistant Medical
DX: E11.9 Type 2 diabetes mellitus without complications (principal)
CPT/HCPCS: 36415; 80048; 83036

== ENCOUNTER 2021-02-03 07:15 | Outpatient (CLI) | payer MEDICARE, OTHER ==
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
== END 2021-02-03 07:16 | disposition home or self-care (01) ==
LOC: DI 07:15
PROVIDERS: ATTEND Physician Assistant Medical
DX: R93.2 Abnormal findings on diagnostic imaging of liver and biliary tract (principal); N83.202 Unspecified ovarian cyst, left side; N83.201 Unspecified ovarian cyst, right side; R93.89 Abnormal findings on diagnostic imaging of other specified body structures

== ENCOUNTER 2021-05-13 08:53 | Outpatient (CLI) | payer MEDICARE, OTHER ==
[2021-05-13 12:14] LABS: MICROALBUM/CREATININE RATIO,UR 5.6 ug/mg (<30.0); MICROALBUMIN,URINE 1.1 mg/dL (0-300.0)
[2021-05-13 12:30] LABS: ALBUMIN 3.8 g/dL (3.2-5.5); ALBUMIN/GLOBULIN RATIO 1.1 (1.0-2.2); ALKALINE PHOSPHATASE 77 IU/L (42-121); ALT ALANINE AMINOTRANSFERASE 20 IU/L (10-60); AST ASPARTATE AMINOTRANSFERASE 22 IU/L (10-42); BILIRUBIN,TOTAL 0.7 mg/dL (0.2-1.0); BUN - BLOOD UREA NITROGEN 19 mg/dL (6-20); CALCIUM 9.3 mg/dL (8.5-10.3); CARBON DIOXIDE - CO2 25 mmol/L (21-32); CHLORIDE 107 mmol/L (101-111); CHOL/HDL RATIO 2.7 (<4.4); CHOLESTEROL 164 mg/dL; CREATININE 1.2 mg/dL (0.4-1.0); GFR - MDRD 43 (>89); GLUCOSE 149 mg/dL (70-100); HDL CHOLESTEROL 60 mg/dL; LDL CHOLESTEROL,CALCULATED 77 mg/dL; LDL/HDL RATIO 1.3 (<4.4); POTASSIUM 4.3 mmol/L (3.5-5.0); SODIUM 142 mmol/L (135-145); TOTAL PROTEIN 7.3 g/dL (6.7-8.2); TRIGLYCERIDES 137 mg/dL; VLDL CHOLESTEROL 27 mg/dL
[2021-05-13 12:43] LABS: ESTIMATED AVERAGE GLUCOSE 154 mg/dL (70-100)
== END 2021-05-13 23:59 | disposition home or self-care (01) ==
LOC: LAB.WCP 08:53
PROVIDERS: ATTEND Physician Assistant Medical
DX: E11.9 Type 2 diabetes mellitus without complications (principal)
CPT/HCPCS: 36415; 80053; 80061; 82043; 82570; 83036; 83721

== ENCOUNTER 2021-05-29 11:10 | Outpatient (CLI) | payer OTHER, MEDICARE | END 2021-05-29 11:11 | disposition critical access hospital (66) | LOC: EMS 11:10 | DX: Z04.1 Encounter for examination and observation following transport accident (principal); R07.89 Other chest pain | CPT/HCPCS: A0425; A0429 ==

== ENCOUNTER 2021-05-29 11:34 | Emergency (ER) | payer OTHER, MEDICARE ==
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
--- NOTE | 2021-05-29 12:23 | XRAY Report ---
PROCEDURE: Chest 1 View X-Ray INDICATIONS: Chest pain TECHNIQUE: One view of the chest was acquired. COMPARISON: 18/12/2020 FINDINGS: Surgical changes and devices: None. Lungs and pleura: No pleural effusions or pneumothorax. Lungs are clear. Mediastinum: Mediastinal contours appear normal. Heart size is normal. Bones and chest wall: No suspicious bony lesions. Overlying soft tissues appear unremarkable. IMPRESSION: No acute cardiopulmonary process demonstrated. Reviewed by: London Davison MD on 05/29/2021 12:21 PM PDT Approved by: London Davison MD on 05/29/2021 12:21 PM PDT Station ID: [id number]
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
[2021-05-29] MEDS ORDERED: IBUPROFEN 800 MG TABLET PO STA (12:54)
[2021-05-29] MEDS ORDERED: HYDROcod/ACETAM 5/325 MG TABLET PO STA (13:31)
[2021-05-29 13:46] VITALS: BP 155/76
== END 2021-05-29 14:16 | disposition home or self-care (01) ==
LOC: EDUNIT# → ED 11:34
DX: S20.219A Contusion of unspecified front wall of thorax, initial encounter (principal); S80.02XA Contusion of left knee, initial encounter; V43.52XA Car driver injured in collision with other type car in traffic accident, initial encounter; W22.11XA Striking against or struck by driver side automobile airbag, initial encounter; Y92.410 Unspecified street and highway as the place of occurrence of the external cause; I10 Essential (primary) hypertension; Z79.82 Long term (current) use of aspirin
CPT/HCPCS: 71045; 73562; 99282; 99284; A9270

== ENCOUNTER 2021-08-12 08:52 | Outpatient (CLI) | payer MEDICARE, OTHER ==
[2021-08-12 12:54] LABS: CALCIUM 9.4 mg/dL (8.5-10.3); CREATININE 1.1 mg/dL (0.4-1.0); POTASSIUM 4.5 mmol/L (3.5-5.0)
[2021-08-12 13:06] LABS: ESTIMATED AVERAGE GLUCOSE 146 mg/dL (70-100); HEMOGLOBIN A1c% 6.7 % (4.27-6.07)
== END 2021-08-12 23:59 | disposition home or self-care (01) ==
LOC: LAB.WCP 08:52
PROVIDERS: ATTEND Physician Assistant Medical
DX: E11.9 Type 2 diabetes mellitus without complications (principal)
CPT/HCPCS: 36415; 80048; 83036

== ENCOUNTER 2022-09-30 07:22 | Outpatient (CLI) | payer MEDICARE, OTHER ==
[2022-09-30 12:06] LABS: ALKALINE PHOSPHATASE 76 IU/L (42-121); ALT ALANINE AMINOTRANSFERASE 16 IU/L (10-60); AST ASPARTATE AMINOTRANSFERASE 22 IU/L (10-42); BILIRUBIN,TOTAL 0.8 mg/dL (0.2-1.0); BUN - BLOOD UREA NITROGEN 24 mg/dL (6-20); CALCIUM 9.3 mg/dL (8.5-10.3); CARBON DIOXIDE - CO2 21 mmol/L (21-32); CHLORIDE 105 mmol/L (101-111); CHOL/HDL RATIO 2.7 (<4.4); CHOLESTEROL 168 mg/dL; CREATININE 1.1 mg/dL (0.4-1.0); GFR - MDRD 48 (>89); GLUCOSE 127 mg/dL (70-100); HDL CHOLESTEROL 63 mg/dL; LDL CHOLESTEROL,CALCULATED 83 mg/dL; LDL/HDL RATIO 1.3 (<4.4); POTASSIUM 4.4 mmol/L (3.5-5.0); SODIUM 138 mmol/L (135-145); TOTAL PROTEIN 8.1 g/dL (6.7-8.2); TRIGLYCERIDES 112 mg/dL; VLDL CHOLESTEROL 22 mg/dL
[2022-09-30 12:29] LABS: ESTIMATED AVERAGE GLUCOSE 140 mg/dL (70-100); HEMOGLOBIN A1c% 6.5 % (4.27-6.07)
== END 2022-09-30 07:23 | disposition home or self-care (01) ==
LOC: LAB.N 07:22
PROVIDERS: ATTEND Physician Assistant Medical
DX: E11.9 Type 2 diabetes mellitus without complications (principal)
CPT/HCPCS: 36415; 80053; 80061; 83036; 83721

== ENCOUNTER 2023-06-01 10:01 | Outpatient (CLI) | payer MEDICARE, OTHER ==
[2023-06-01 12:39] LABS: ALBUMIN 4.1 g/dL (3.2-5.5); ALBUMIN/GLOBULIN RATIO 1.2 (1.0-2.2); ALKALINE PHOSPHATASE 65 IU/L (42-121); ALT ALANINE AMINOTRANSFERASE 17 IU/L (10-60); AST ASPARTATE AMINOTRANSFERASE 19 IU/L (10-42); BILIRUBIN,TOTAL 0.7 mg/dL (0.2-1.0); BUN - BLOOD UREA NITROGEN 26 mg/dL (6-20); CALCIUM 9.2 mg/dL (8.5-10.3); CARBON DIOXIDE - CO2 22 mmol/L (21-32); CHLORIDE 109 mmol/L (101-111); CHOL/HDL RATIO 2.5 (<4.4); CHOLESTEROL 142 mg/dL; CREATININE 1.3 mg/dL (0.6-1.3); GFR - MDRD 39 (>89); GLUCOSE 173 mg/dL (74-104); HDL CHOLESTEROL 56 mg/dL; LDL CHOLESTEROL,CALCULATED 61 mg/dL; LDL/HDL RATIO 1.1 (<4.4); POTASSIUM 4.2 mmol/L (3.5-4.5); SODIUM 139 mmol/L (135-145); TOTAL PROTEIN 7.6 g/dL (6.4-8.9); TRIGLYCERIDES 123 mg/dL (48-352); VLDL CHOLESTEROL 25 mg/dL
[2023-06-01 12:54] LABS: ESTIMATED AVERAGE GLUCOSE 137 mg/dL (70-100); HEMOGLOBIN A1c% 6.4 % (4.27-6.07)
== END 2023-06-01 10:02 | disposition home or self-care (01) ==
LOC: LAB.N 10:01
PROVIDERS: ATTEND Physician Assistant Medical
DX: E11.9 Type 2 diabetes mellitus without complications (principal)
CPT/HCPCS: 36415; 80053; 80061; 83036; 83721

== ENCOUNTER 2023-06-13 14:10 | Emergency (ER) | payer MEDICARE, OTHER ==
--- NOTE | 2023-06-13 14:23 | ED Physician Documentation ---
PD HPI ABD PAIN - Stated complaint Stated Complaint: LFT SIDE PX - Chief complaint Chief Complaint: Abd Pain - History obtained from History obtained from: Patient - History of Present Illness Timing - onset: How many days ago (3) Timing - duration: Days (3) Timing - details: Gradual onset, Still present, Waxing and waning Quality: Cramping, Aching, Pain Location: LLQ Radiation: Left flank Improved by: No: Eating, BM Worsened by: No: Eating, Moving, Breathing Associated symptoms: Nausea, Loss of appetite. No: Fever, Vomiting, Diarrhea, Constipation, Dysuria Similar symptoms before: Has not had sx before Review of Systems Constitutional: denies: Fever, Chills, Myalgias Nose: denies: Rhinorrhea / runny nose, Congestion Throat: denies: Sore throat Respiratory: denies: Cough GI: reports: Abdominal Pain, Nausea. denies: Abdominal Swelling, Vomiting, Constipation, Diarrhea : denies: Dysuria Skin: denies: Rash PD PAST MEDICAL HISTORY - Past Medical History Cardiovascular: Hypertension, High cholesterol Respiratory: Asthma Neuro: None Endocrine/Autoimmune: None GI: None : None HEENT: Other Psych: None Musculoskeletal: None Derm: None - Past Surgical History Past Surgical History: Yes General: Cholecystectomy, Colonoscopy /STAFF ATTORNEY: Hysterectomy HEENT: Cataracts - Present Medications Home Medications: Ambulatory Orders Medication Instructions Recorded Confirmed Atorvastatin Calcium [Lipitor] 40 mg PO HS 04/09/13 04/02/22 Felodipine [Plendil] 5 mg PO BID 04/09/13 04/02/22 Montelukast Sodium [Singulair] 10 mg PO DAILY 04/09/13 04/02/22 Albuterol Sulfate [Proair 2 puffs INH Q4H PRN 12/30/16 04/02/22 Respiclick] HYDROcod/ACETAM 5/325 [[place] 5/325] 1 tab PO Q6H PRN #14 tablet 01/06/17 04/02/22 Losartan [Cozaar] 100 mg PO DAILY tablet 01/06/17 04/02/22 Clotrimazole 1% Cream [Lotrimin 1% 15 gm TOP BID #1 each 04/01/23 Cream] cephALEXin [Keflex] 500 mg PO TID 7 Days #20 cap 06/13/23 - Allergies Allergies/Adverse Reactions: Allergies Allergy/AdvReac Type Severity Reaction Status Date / Time No Known Drug Allergies Allergy Verified 06/13/23 14:17 - Social History Does the pt smoke?: No Smoking Status: Never smoker Does the pt drink ETOH?: No Does the pt have substance abuse?: No - Immunizations Immunizations are current?: Yes - POLST Patient has POLST: No POLST Status: Full Code PD ED PE NORMAL - Vitals Vital signs reviewed: Yes - General General: Alert and oriented X 3, No acute distress, Well developed/nourished - Neck Neck: Supple, no meningeal sign, No adenopathy - Cardiac Cardiac: RRR, No murmur - Respiratory Respiratory: Clear bilaterally - Abdomen Abdomen: Normal bowel sounds, Soft, Non distended, No organomegaly, Other (some tender without guarding nor percussion tender left mid to lower abd. Mild to moderate left CVA tender to percussion. No rash nor sores. No skin tenderness. ) - Female Female : Deferred - Rectal Rectal: Deferred - Derm Derm: Normal color, Warm and dry, No rash - Extremities Extremities: No edema, No calf tenderness / cord - Neuro Neuro: Alert and oriented X 3, No motor deficit, Normal speech Results - Vitals Vitals: Oxygen O2 Source Room air - Labs Labs: Microbiology 06/13/23 14:24 Urine Culture - Preliminary Urine,Clean Catch Escherichia Coli Laboratory Tests 06/13/23 06/13/23 06/13/23 14:24 14:55 14:55 WBC 12.2 H RBC 4.19 L Hgb 12.1 Hct 37.1 MCV 88.5 MCH 28.9 MCHC 32.6 RDW 12.0 Plt Count 164 MPV 9.4 Neut # (Auto) 10.0 H Lymph # (Auto) 0.9 L [place] # (Auto) 1.1 H Eos # (Auto) 0.0 Baso # (Auto) 0.1 Absolute Nucleated RBC 0.00 Nucleated RBC % 0.0 Sodium 132 L Potassium 4.3 Chloride 102 Carbon Dioxide 22 Anion Gap 8.0 BUN 24 H Creatinine 1.7 H Estimated GFR (MDRD) 29 L Glucose 138 H Calcium 8.9 Total Bilirubin 1.2 H AST 17 ALT 10 Alkaline Phosphatase 68 Total Protein 7.2 Albumin 3.7 Globulin 3.5 Albumin/Globulin Ratio 1.1 Lipase 12 Urine Color YELLOW Urine Clarity CLEAR Urine pH 6.0 Ur Specific [place] 1.015 Urine Protein 30 H Urine Glucose (UA) NEGATIVE Urine Ketones NEGATIVE Urine Occult Blood SMALL H Urine Nitrite NEGATIVE Urine Bilirubin NEGATIVE Urine Urobilinogen 0.2 (NORMAL) Ur Leukocyte Esterase SMALL H Urine RBC 6-10 H Urine WBC 11-25 H Ur Squamous Epith Cells FEW Squamous Urine Bacteria Moderate H Ur Microscopic Review INDICATED Urine Culture Comments INDICATED - Rads (name of study) abd/pelvic CT Relevant Findings:: Prelim report reviewed (left hydronephrosis with perinephric fat stranding. No stone seen. could be compatible with recnet passed stone.), EMP independent interpretation of test (recent stone or more liley pyelo. ) PD Medical Decision Making - ED course Complexity details: reviewed results (UA suggestive of UTI. Labs blood are okay. CT scan showing left hydronephrosis without stone. No diverticulitis. No other acute. Presume UTI/pyelo but does not appear ill/septic. ), considered differential (left abd to flank pain. Normal stools. No dysuria. Can get labs, UA and CT scan. ), d/w patient Departure - Departure Disposition: Home, Self Care Clinical Impression: Left sided abdominal pain UTI (urinary tract infection) Qualifiers: Urinary tract infection type: acute pyelonephritis Qualified Code(s): N10 - Acute pyelonephritis Condition: Stable Record reviewed to determine appropriate education?: Yes Instructions: ED Kidney Infec Female Follow-Up: Sima Llanos PA-C [Primary Care Provider] - Prescriptions: cephALEXin [Keflex] 500 mg PO TID 7 Days #20 cap Comments: Your urine sample shows signs of infection. Your white count is slightly elevated consistent with that. Your CT scan shows some inflammation around the kidney and in the ureter consistent with infection. No signs of kidney stones. The intestinal aspect of your CT scan looked normal without any signs of colitis or diverticulitis etc. It looks therefore that your pain is coming from a bladder/kidney infection. I would treat it with cephalexin antibiotic 3 times daily for a week. Use Tylenol 500 to 650 mg 4 times daily to help with the pain. Stay well-hydrated. Continue your other usual medicines. I sent your prescription to the [facility] pharmacy. Recheck if not improving well over the next few days and return if worse. Forms: PCP List Discharge Date/Time: 06/13/23 18:18
[2023-06-13] MEDS ORDERED: KETOROLAC 15 MG/ML VIAL IVP STA (14:33)
[2023-06-13 14:51] LABS: BILIRUBIN,URINE NEGATIVE (NEGATIVE); GLUCOSE, URINE (UA) NEGATIVE (NEGATIVE); KETONES,URINE (UA) NEGATIVE (NEGATIVE); LEUKOCYTE ESTERASE, URINE SMALL (NEGATIVE); NITRITE,URINE NEGATIVE (NEGATIVE); OCCULT BLOOD,URINE SMALL (NEGATIVE); PROTEIN,URINE 30 mg/dL (NEGATIVE); UROBILINOGEN,URINE 0.2 (NORMAL) E.U./dL (NORMAL)
[2023-06-13 14:53] LABS: CLARITY,URINE CLEAR (CLEAR)
[2023-06-13 15:10] LABS: SQUAMOUS EPITHELIAL CELL,UR FEW Squamous (<= Few)
[2023-06-13 15:11] LABS: BACTERIA,URINE Moderate /HPF (None Seen)
[2023-06-13 15:13] LABS: BASOPHILS # (AUTO) 0.1 10^3/uL (0.0-0.1); BASOPHILS % (AUTO) 0.4 %; EOSINOPHILS % (AUTO) 0.1 %; HCT - HEMATOCRIT 37.1 % (37.0-47.0); HGB - HEMOGLOBIN 12.1 g/dL (12.0-16.0); LYMPHOCYTES # (AUTO) 0.9 10^3/uL (1.5-3.5); LYMPHOCYTES % (AUTO) 7.7 %; MEAN CORPUSCULAR HEMOGLOBIN 28.9 pg (27.0-31.0); MEAN CORPUSCULAR HGB CONC 32.6 g/dL (32.0-36.0); MEAN CORPUSCULAR VOLUME 88.5 fL (81.0-99.0); MEAN PLATELET VOLUME 9.4 fL (7.9-10.8); MONOCYTES # (AUTO) 1.1 10^3/uL (0.0-1.0); MONOCYTES % (AUTO) 8.8 %; NEUTROPHILS % (AUTO) 82.6 %; PLT - PLATELET COUNT 164 10^3/uL (130-450); RED BLOOD COUNT 4.19 10^6/uL (4.20-5.40); WHITE BLOOD COUNT 12.2 x10^3/uL (4.8-10.8)
[2023-06-13 15:35] LABS: ALBUMIN 3.7 g/dL (3.2-5.5); ALBUMIN/GLOBULIN RATIO 1.1 (1.0-2.2); BILIRUBIN,TOTAL 1.2 mg/dL (0.2-1.0); CALCIUM 8.9 mg/dL (8.5-10.3); CREATININE 1.7 mg/dL (0.6-1.3); POTASSIUM 4.3 mmol/L (3.5-4.5); TOTAL PROTEIN 7.2 g/dL (6.4-8.9)
[2023-06-13] MEDS ORDERED: cefTRIAXone 1 GM VIAL IVP STA (17:24)
--- NOTE | 2023-06-13 17:29 | CT Report ---
PROCEDURE: ABDOMEN/PELVIS WO INDICATIONS: LLQ Abdominal pain, diverticulitis suspected TECHNIQUE: A CT scan of the abdomen and pelvis was performed without the use of intravenous contrast. Images we re recorded and evaluated at appropriate window settings. Reformats: coronal and sagittal. For radiat ion dose reduction, the following was used: automated exposure control, adjustment of mA and/or kV ac cording to patient size. COMPARISON: 03/18/2023, 03/26/2022 FINDINGS: Image quality: Excellent. Lung bases and heart: A small hiatal hernia is incidentally noted. Liver: A prominent liver is seen. No solid mass. Gallbladder and biliary tree: Cholecystectomy. Spleen: No splenomegaly. Pancreas: No pancreatic ductal dilation. Adrenals: No adrenal nodule. Kidneys and ureters: Mild to moderate left-sided hydronephrosis is seen. There is moderate left-sided perinephric fat stranding. No definite stone can be seen within the ureter. No renal cystic lesion which requires follow up. No solid mass. Bowel and peritoneum: No bowel distension. No pathologic free fluid. Prior right hemicolectomy change is seen. Diverticulosis can be seen, without sharon findings of active diverticulitis. Lymph nodes: No central or retroperitoneal adenopathy. Vessels: No infrarenal aortic aneurysm. Atherosclerotic calcification is seen. PELVIS Reproductive organs: This patient is status post hysterectomy. No adnexal masses can be seen. Note is made of a right adnexal cyst measuring 2.6 cm. Bladder: No wall thickness, accounting for underdistention. Pelvic lymph nodes: No pelvic adenopathy by size criteria. Bones: No aggressive osseous abnormality. Focal L2-L3 degenerative change is seen. Milder degenerativ e changes are seen elsewhere. Other: There is a right lower quadrant ventral hernia seen containing fat, as on series 2 image 62. IMPRESSION: There is left-sided hydronephrosis and perinephric left-sided fat stranding, yet without a stone seen. Please consider a recently passed stone. Additional findings: Small hiatal hernia Hepatomegaly Cholecystectomy Right hemicolectomy Right lower quadrant fat-containing ventral hernia Focal L2-L3 degenerative change Diverticulosis, without findings of active diverticulitis. Hysterectomy 2.6 cm left adnexal cyst seen, which is regarded to be benign. Reviewed by: Patrick Latham MD on 06/13/2023 4:27 PM AKDT Approved by: Patrick Latham MD on 06/13/2023 4:27 PM JODIE Station ID: [id number]
[2023-06-13 18:27] VITALS: BP 121/59; O2SAT 97
== END 2023-06-13 18:18 | disposition home or self-care (01) ==
LOC: ED 14:10
DX: N10 Acute pyelonephritis (principal); I10 Essential (primary) hypertension
CPT/HCPCS: 36415; 80053; 81001; 81003; 83690; 85025; 87086; 87181; 96374; 96375; 99284

== ENCOUNTER 2023-09-15 10:28 | Outpatient (CLI) | payer MEDICARE, OTHER ==
[2023-09-15 12:30] LABS: CALCIUM 9.2 mg/dL (8.5-10.3); CREATININE 1.4 mg/dL (0.6-1.3); POTASSIUM 4.8 mmol/L (3.5-4.5)
[2023-09-15 12:53] LABS: ESTIMATED AVERAGE GLUCOSE 131 mg/dL (70-100); HEMOGLOBIN A1c% 6.2 % (4.27-6.07)
== END 2023-09-15 10:29 | disposition home or self-care (01) ==
LOC: LAB.N 10:28
PROVIDERS: ATTEND Physician Assistant Medical
DX: E11.9 Type 2 diabetes mellitus without complications (principal)
CPT/HCPCS: 36415; 80048; 83036

== ENCOUNTER 2023-12-17 07:51 | Outpatient (CLI) | payer MEDICARE, OTHER ==
[2023-12-17 12:43] LABS: ESTIMATED AVERAGE GLUCOSE 134 mg/dL (70-100); HEMOGLOBIN A1c% 6.3 % (4.27-6.07)
[2023-12-17 13:08] LABS: CREATININE 1.2 mg/dL (0.6-1.3); POTASSIUM 4.1 mmol/L (3.5-4.5)
== END 2023-12-17 07:52 | disposition home or self-care (01) ==
LOC: LAB.N 07:51
PROVIDERS: ATTEND Physician Assistant Medical
DX: E11.9 Type 2 diabetes mellitus without complications (principal)
CPT/HCPCS: 36415; 80048; 83036